=== PATIENT | male | born 1940 | race Caucasian/White ===

== ENCOUNTER 2022-02-19 09:46 | Outpatient (CLI) | payer MEDICARE, BC ==
[2022-02-19 12:02] LABS: Hemoglobin 12.8 g/dL (13.5-17.5); Mean Corpuscular HGB CONC 35.3 g/dL (32.0-36.0); Mean Corpuscular Hemoglobin 32.4 pg (27.0-33.0); Mean Corpuscular Volume 91.9 fl (81.2-95.1); Mean Platelet Volume 10.3 fl (7.4-10.4); Platelet Count 329 10x3/uL (150-450); RBC Distribution Width 13.2 % (11.5-14.5); Red Blood Cell (RBC) Count 3.95 10x6/uL (4.32-5.72); White Blood Cell (WBC) Count 10.7 10x3/uL (3.5-10.5)
[2022-02-19 12:16] LABS: PTT 31.2 sec (22.0-33.0); Prothrombin Time 10.7 sec (9.5-12.1)
[2022-02-19 12:18] LABS: Anion Gap 12 mmol/L (10-20); BUN (Urea Nitrogen) 15 mg/dL (8.4-25.7); Calc. Creatinine Clearance 0 mL/min (70-130); Calcium 9.7 mg/dL (7.8-10.44); Carbon Dioxide 25 mmol/L (23-31); Chloride 92 mmol/L (98-107); Estimated GFR 86; Glucose 74 mg/dL (83-110); Potassium 4.4 mmol/L (3.5-5.1); Sodium 125 mmol/L (136-145)
== END 2022-02-19 09:47 | disposition home or self-care (01) ==
LOC: LABBT 09:46
PROVIDERS: ATTEND Urology
DX: Z01.812 Encounter for preprocedural laboratory examination (principal); N35.012 Post-traumatic membranous urethral stricture
CPT/HCPCS: 80048; 85027; 85610; 85730; 87077; 87086; 87186; 93005; 93010

== ENCOUNTER 2022-02-25 09:52 | Day surgery (SDC) | payer MEDICARE, BC ==
[2022-02-24 11:06] VITALS: BMI 22.6
[2022-02-25] MEDS ORDERED: Levofloxacin 500 mg/D5W 100 ml Premix Bag ONE (11:02)
[2022-02-25] MEDS ORDERED: fentaNYL PF 100 MCG/2 ML SYRINGE ONE (11:10)
[2022-02-25] MEDS ORDERED: Iopamidol 0 ML ONE (11:49)
[2022-02-25] MEDS ORDERED: PROPOFOL 200 MG/20 ML VIAL ONE (11:58)
[2022-02-25] MEDS ORDERED: Dexamethasone 20 MG/5 ML VIAL ONE (11:58)
[2022-02-25] MEDS ORDERED: ePHEDrine 50 MG/ML VIAL ONE (11:58)
[2022-02-25] MEDS ORDERED: Ondansetron PF 4 MG/2 ML Vial ONE (11:58)
[2022-02-25] MEDS ORDERED: Ketorolac Tromethamine 30 MG/ML VIAL ONE (11:58)
== END 2022-02-25 15:30 | disposition home or self-care (01) ==
LOC: SDC 09:52
PROVIDERS: ATTEND Urology
PROC: 0T7D8ZZ Dilation of Urethra, Via Natural or Artificial Opening Endoscopic (ICD-10-PCS; principal; 2022-02-25)
DX: N35.913 Unspecified membranous urethral stricture, male (principal); N31.9 Neuromuscular dysfunction of bladder, unspecified; N40.0 Benign prostatic hyperplasia without lower urinary tract symptoms; I25.10 Atherosclerotic heart disease of native coronary artery without angina pectoris; I25.2 Old myocardial infarction; I11.0 Hypertensive heart disease with heart failure; I50.9 Heart failure, unspecified; E78.5 Hyperlipidemia, unspecified; Z79.82 Long term (current) use of aspirin; Z79.899 Other long term (current) drug therapy; Z88.2 Allergy status to sulfonamides; Z88.5 Allergy status to narcotic agent; Z88.8 Allergy status to other drugs, medicaments and biological substances; Z95.1 Presence of aortocoronary bypass graft
CPT/HCPCS: J1100; J1885; J1956; J2405; J2704; J3490; Q9967

== ENCOUNTER 2023-12-24 10:22 | Outpatient (CLI) | payer MEDICARE | END 2023-12-24 10:23 | disposition home or self-care (01) | LOC: BICCT 10:22 | PROVIDERS: ATTEND Internal Medicine Critical Care Medicine | DX: J84.9 Interstitial pulmonary disease, unspecified (principal) | CPT/HCPCS: 71250 ==

== ENCOUNTER 2024-12-16 12:42 | Outpatient (CLI) | payer MEDICARE | END 2024-12-16 12:43 | disposition home or self-care (01) | LOC: CT 12:42 | PROVIDERS: ATTEND Internal Medicine Critical Care Medicine | DX: J84.9 Interstitial pulmonary disease, unspecified (principal) | CPT/HCPCS: 71250 ==